=== PATIENT | male | born 1970 | race Native Hawaiian/Other Pacific Islander ===

== ENCOUNTER 2019-04-22 17:12 | Outpatient (CLI) | payer BC | END 2019-04-22 23:22 | disposition home or self-care (01) | LOC: RAD 17:12 | DX: M79.641 Pain in right hand (principal); R22.9 Localized swelling, mass and lump, unspecified ==

== ENCOUNTER 2021-08-26 13:38 | Outpatient (CLI) | payer BC | END 2021-08-26 23:04 | disposition home or self-care (01) | LOC: RAD 13:38 | PROVIDERS: ATTEND Nurse Practitioner Family | DX: R22.33 Localized swelling, mass and lump, upper limb, bilateral (principal); S16.1XXA Strain of muscle, fascia and tendon at neck level, initial encounter; X58.XXXA Exposure to other specified factors, initial encounter; Y93.89 Activity, other specified; Y92.89 Other specified places as the place of occurrence of the external cause ==

== ENCOUNTER 2022-03-02 16:02 | Outpatient (CLI) | payer BC ==
[~2022-03-02] VITALS: Ht 175.3 cm; Wt 83.9 kg
[2022-03-02 16:38] VITALS: BP 140/87; TEMP 98
[2022-03-02 17:30] VITALS: BP 139/95; TEMP 98.8
[2022-03-02 17:45] VITALS: BP 143/88; TEMP 98.6
[2022-03-02 18:15] VITALS: BP 142/86; TEMP 97.8
--- NOTE | 2022-03-02 18:36 | NUR ---
1638 PT AMBULATED TO ROOM 1122 ACCOMPANIED BY HIS . VS OBTAINED 1710 24G PIV TO RAC AFTER MULTIPLE ATTEMPTS BY MULTIPLE NURSES. 1715 BEBTELOVIMAB IVP OVER 30SECONDS FOLLWED BY 10ML NS FLUSH. PT TOLERATED WELL. WILL MONITOR VS PER ORDERS 1815 PT AMBULATED OUT OF FACILITY WITH HIS TO POV IN NO DISTRESS.
== END 2022-03-02 19:10 | disposition home or self-care (01) ==
LOC: INF 16:02
PROVIDERS: ATTEND Internal Medicine
DX: Z23 Encounter for immunization (principal); U07.1 COVID-19
CPT/HCPCS: 96374; Q0222